=== PATIENT | female | born 2000 | race Caucasian/White ===

== ENCOUNTER 2023-02-23 08:00 | Outpatient (CLI) | payer OTHER ==
[2023-02-23 10:39] LABS: BHCG - Serum Negative (NEGATIVE); Pregs Control Background? CLEAR/WHITE (CLR/WHITE); Pregs Control Bar Appear? YES (CONTROL BAR)
== END 2023-02-23 08:01 | disposition home or self-care (01) ==
LOC: CSHLAB 08:00
PROVIDERS: ATTEND Otolaryngology Plastic Surgery within the Head & Neck
DX: Z01.812 Encounter for preprocedural laboratory examination (principal); J35.01 Chronic tonsillitis
CPT/HCPCS: 84703; 85014

== ENCOUNTER 2023-02-28 06:17 | Day surgery (SDC) | payer OTHER ==
[2023-02-23 08:35] VITALS: BMI 28.3
[2023-02-28] MEDS ORDERED: Dexmedetomidine 200 MCG/2 ML VIAL ONE (06:33)
[2023-02-28] MEDS ORDERED: SUGAMMADEX SODIUM 200 MG/2 ML VIAL ONE (06:53)
[2023-02-28] MEDS ORDERED: Midazolam HCl 2 mg/2 ml Vial ONE (07:29)
[2023-02-28] MEDS ORDERED: PROPOFOL 20 ML ONE (08:13)
[2023-02-28] MEDS ORDERED: Fentanyl 100 MCG/2 ML VIAL ONE (08:14)
[2023-02-28] MEDS ORDERED: Dexamethasone 20 MG/5 ML VIAL ONE (08:15)
[2023-02-28] MEDS ORDERED: Rocuronium Bromide 10 MG/ML (10ML VIAL) ONE (08:15)
[2023-02-28] MEDS ORDERED: Ondansetron PF 4 MG/2 ML Vial ONE (08:15)
== END 2023-02-28 10:10 | disposition home or self-care (01) ==
LOC: CSHSDC 06:17
PROVIDERS: ATTEND Otolaryngology Plastic Surgery within the Head & Neck
PROC: 0CTPXZZ Resection of Tonsils, External Approach (ICD-10-PCS; principal; 2023-02-28)
PROC: 0CTQXZZ Resection of Adenoids, External Approach (ICD-10-PCS; principal; 2023-02-28)
DX: J35.1 Hypertrophy of tonsils (principal); F41.9 Anxiety disorder, unspecified
CPT/HCPCS: 88304; J1100; J2250; J2405; J2704; J3010